=== PATIENT | male | born 1975 | race Caucasian/White ===

== ENCOUNTER 2020-06-20 01:51 | Emergency (ER) | payer OTHER, SELFPAY ==
[2020-06-20 01:54] VITALS: BP 185/108; PULSE 91; RESP 20; TEMP 36.4; O2SAT 99
--- NOTE | 2020-06-20 03:18 | ED.GENADULT ---
HPI - General Adult General Chief complaint: Unspecified Stated complaint: post op complications Time Seen by Provider: 06/20/20 03:03 History of Present Illness HPI narrative: Patient is a 44-year-old gentleman who presents the emergency department with chief complaint of postoperative wound complication. Patient reports that he had a abdominal hernia repair and had about a half a centimeter area opened up in the lower portion of the incision. Patient reports he had a little bit of blood and some serosanguineous drainage from the site. Patient denies purulent drainage denies fever denies chills denies any other complaints other than that he has had a difficult time having a bowel movement. The patient called the on-call physician for his surgical group who advised him to come to the emergency department for evaluation Related Data Home Medications Medication Instructions Recorded Confirmed docusate sodium 100 mg capsule 100 mg PO BID 04/03/19 Allergies Allergy/AdvReac Type Severity Reaction Status Date / Time No Known Allergies Allergy Mild Verified 06/20/20 03:04 Review of Systems Review of Systems: Narrative: A 10 system review of systems was completed on the patient and is negative except for what is stated in the HPI. Nursing and ancillary documentation was reviewed. [facility] Family History Family History Father Hypertension Social History Social History Smoking status: Never smoker Alcohol intake: never Gender identity (if verbalized by the patient): Male Comments Ventral hernia Ventral hernia repair Exam Narrative: Exam Narrative: GENERAL: Well-appearing, well-nourished, and in no acute distress. HEAD: Normocephalic, atraumatic. EYES: PERRLA and EOMI. ENT: Nares clear, no rhinorrhea or epistaxis. Mucous membranes moist. NECK: Supple. CHEST: Clear to auscultation. No respiratory distress. HEART: Regular rate and rhythm. No murmur heard. Normal peripheral pulses. ABDOMEN: Soft, nontender, nondistended, normal active bowel sounds. There is a midline incision superior to the umbilicus there is 1/2 cm area of the incision that is opened up the fascial layer is closed. There is some serosanguineous drainage from the area. EXTREMITIES: Normal range of motion. No edema. SKIN: Warm, dry, no rash. NEURO: No focal deficits. Alert and oriented x3. PSYCH: Normal mood and affect. Course Course Emergency Course: The on-call physician for the patient surgical group was contacted and the wound will be dressed with some donna dressing and also will have Steri-Strips applied. At this time there is no signs of a postoperative wound infection the patient will not be started on antibiotics and the patient should follow-up with his surgeon on Sunday or Sunday Vital Signs Vital signs: Vital Signs Temperature 36.4 C L 06/20/20 01:54 Pulse Rate 91 06/20/20 01:54 Respiratory Rate 20 06/20/20 01:54 Blood Pressure 185/108 H 06/20/20 01:54 Pulse Oximetry 99 06/20/20 01:54 Temperature 36.4 C L 06/20/20 01:54 Pulse Rate 91 06/20/20 01:54 Respiratory Rate 20 06/20/20 01:54 Blood Pressure 185/108 H 06/20/20 01:54 Pulse Oximetry 99 06/20/20 01:54 Medical Decision Making Vital Signs Vital Signs: Vital Signs Temperature 36.4 C L 06/20/20 01:54 Pulse Rate 91 06/20/20 01:54 Respiratory Rate 20 06/20/20 01:54 Blood Pressure 185/108 H 06/20/20 01:54 Pulse Oximetry 99 06/20/20 01:54 Temperature 36.4 C L 06/20/20 01:54 Pulse Rate 91 06/20/20 01:54 Respiratory Rate 20 06/20/20 01:54 Blood Pressure 185/108 H 06/20/20 01:54 Pulse Oximetry 99 06/20/20 01:54 Discharge Plan Discharge Clinical Impression: Abdominal wound dehiscence Patient Disposition: Home, Self-Care Condition: Stable Instructions: Antibiotic Form,
[2020-06-20 03:55] VITALS: BP 180/100; PULSE 90; RESP 16; TEMP 36.4; O2SAT 99
== END 2020-06-20 03:56 | disposition home or self-care (01) ==
LOC: ANHED 03:26
PROVIDERS: Emergency Provider Emergency Medicine; PCP Emergency Medicine
DX: T81.31XA Disruption of external operation (surgical) wound, not elsewhere classified, initial encounter (principal)
CPT/HCPCS: 99282

== ENCOUNTER 2023-12-29 00:58 | Emergency (ER) | payer OTHER, SELFPAY ==
[2023-12-29 01:04] VITALS: BP 204/117; PULSE 87; RESP 20; TEMP 36.8; O2SAT 98
[2023-12-29 01:42] VITALS: BP 170/106
--- NOTE | 2023-12-29 01:43 | ED.WOUNDLAC ---
HPI - Wound/Laceration General Chief Complaint: Wound/Laceration Stated Complaint: leg laceration Time Seen by Provider: 12/29/23 01:30 History of Present Illness HPI narrative: 48-year-old male presents with his at bedside for cat scratch that occurred 1 hour prior to arrival. Patient states his cat scratched his left lower leg and caused a puncture wound. States he was having difficulty controlling the bleeding which prompted them to come to the ED. Bleeding controlled upon my evaluation. Bandages in place. Last Tdap approximately 14 years ago. Patient was found to be hypertensive at 204/117. He denies history of hypertension but does state he has not been to the doctor in several years. He states every time he checked his blood pressure at his sister's house at is 130 systolic. He denies chest pain or shortness of breath, vision changes, focal numbness or weakness. Related Data Home Medications Medication Instructions Recorded Confirmed docusate sodium 100 mg capsule 100 mg PO BID 04/03/19 (Colace) Allergies Allergy/AdvReac Type Severity Reaction Status Date / Time No Known Allergies Allergy Mild Verified 06/20/20 03:04 Review of Systems Review of Systems: All systems reviewed & are unremarkable except as noted in HPI and below PMFSH Family History Family History Father Hypertension Social History Social History Smoking status: Never smoker Alcohol intake: never Gender identity (if verbalized by the patient): Male Exam Narrative: GENERAL: Well-appearing, well-nourished, and in no acute distress. HEAD: Normocephalic, atraumatic. ENT: Nares clear, no rhinorrhea or epistaxis. Mucous membranes moist. NECK: Supple. CHEST: Clear to auscultation. No respiratory distress. HEART: Regular rate and rhythm. No murmur heard. Normal peripheral pulses. EXTREMITIES: Normal range of motion. No edema. SKIN: Very small puncture wound to the left anterior tibia with overlying clot. No active bleeding. Minimal surrounding ecchymosis. No foreign bodies or deep structures visualized. NEURO: No focal deficits. Alert and oriented x3 Course Vital Signs Vital signs: Vital Signs Temperature 98.2 F 12/29/23 01:04 Pulse Rate 87 12/29/23 01:04 Respiratory Rate 20 12/29/23 01:04 Blood Pressure 204/117 H 12/29/23 01:04 Pulse Oximetry 98 12/29/23 01:04 Oxygen Delivery Room Air 12/29/23 01:04 Temperature 98.2 F 12/29/23 01:04 Pulse Rate 87 12/29/23 01:04 Respiratory Rate 20 12/29/23 01:04 Blood Pressure 204/117 H 12/29/23 01:04 Pulse Oximetry 98 12/29/23 01:04 Oxygen Delivery Room Air 12/29/23 01:04 MDM - Wound/Laceration MDM Narrative Medical decision making narrative: 48-year-old male presents to the emergency department for cat scratch that occurred 1 hour prior to arrival. Triage vitals are significant for hypertension of 204/117. Patient does not have history of hypertension but does admit he has not been to the doctors in several years. He denies signs or symptoms of hypertension including chest pain and shortness of breath, vision changes and focal numbness or weakness. Exam is significant for a small puncture wound to the left anterior tibia with an overlying clot. Bleeding is controlled. There are no deep structures or foreign bodies visualized. Puncture irrigated with normal saline. Tetanus updated. Patient was given a dose of Augmentin in the ED and Augmentin sent to pharmacy. Discussed wound care. BP improved to 170/106 w/o intervention. I did consider starting the patient on amlodipine for hypertension, however he does admit that when he checks his blood pressure normally at his sister's house it is 130 systolic. He does appear anxious and is likely the cause of his acute hypertension. I discussed close follow-up with PCP and t
[2023-12-29] MEDS: AMOXICILLIN/CLAVULANATE K 875-125 MG TAB 1 TABLET PO (02:28)
[2023-12-29] MEDS: TETANUS,DIPHTHERIA,AC PERTUSSIS ADULT (0.5 ML) BOOSTRIX IM (02:28)
[2023-12-29 02:50] VITALS: TEMP 36.9
== END 2023-12-29 02:52 | disposition home or self-care (01) ==
PROVIDERS: Emergency Provider Physician Assistant
DX: S81.832A Puncture wound without foreign body, left lower leg, initial encounter (principal); I10 Essential (primary) hypertension; Z23 Encounter for immunization; W55.03XA Scratched by cat, initial encounter
CPT/HCPCS: 90471; 90715; 99283; A9270